=== PATIENT | male | born 1955 | race African-American/Black ===

== ENCOUNTER 2023-06-06 04:00 | Inpatient (IN) | payer MEDICARE ==
[~2023-06-06] VITALS: Ht 193 cm; Wt 99.8 kg
[2023-06-06 05:01] LABS: BASOPHILS % 0.7 % (0.0-2.0); EOSINOPHILS % 0.4 % (0.0-5.0); HEMATOCRIT. 38.6 % (42.0-52.0); HEMOGLOBIN. 13.2 g/dL (14.0-18.0); LYMPHOCYTES % 23.6 % (20.0-50.0); MEAN CORPUSCULAR HEMOGLOBIN 30.2 pg (28.0-32.0); MEAN CORPUSCULAR HGB CONC 34.1 g/dL (31.0-37.0); MEAN CORPUSCULAR VOLUME 88.6 fL (80.0-94.0); MEAN PLATELET VOLUME 7.8 fl (7.4-10.4); MONOCYTES % 8.6 % (2.0-8.0); NEUTROPHILS % 66.7 % (40.0-76.0); PLATELET 125 x1000/uL (130-400); RED BLOOD CELL COUNT 4.36 mill/uL (4.7-6.1); RED CELL DISTRIBUTION WIDTH 16.7 % (11.6-14.6); WHITE BLOOD COUNT 3.5 x1000/uL (4.5-11.0)
[2023-06-06 05:21] LABS: AMMONIA < 17 uMol/L (<32)
[2023-06-06 05:24] LABS: ACETAMINOPHEN < 2 ug/mL (10-30); ALANINE AMINOTRANSFERASE 14 IU/L (10-49); ALBUMIN 4.5 g/dL (3.2-4.8); ASPARTATE AMINOTRANSFERASE 16 IU/L (<34); BILIRUBIN TOTAL 0.5 mg/dL (0.1-1.0); CALCIUM 9.2 mg/dL (8.7-10.4); CARBON DIOXIDE 27 mEq/L (21-32); CHLORIDE 106 mEq/L (98-107); CREATINE KINASE 119 IU/L (46-171); CREATININE 1.1 mg/dL (0.6-1.3); GLUCOSE 104 mg/dL (70-105); POTASSIUM 3.5 mEq/L (3.5-5.1); PROTEIN TOTAL 8.1 g/dL (6.0-8.3); SODIUM 140 mEq/L (136-145); THYROID STIMULATING HORMONE 1.41 uIU/mL (0.55-4.78); TROPONIN I HIGH SENSITIVITY 32 ng/L (3.0-53); UREA NITROGEN BLOOD 12 mg/dL (9-23)
[2023-06-06 05:25] LABS: ETHANOL BLOOD < 10 mg/dL (<10)
[2023-06-06] MEDS: SODIUM CHLORIDE 0.9% 1,000 ML IV ONE (05:30)
[2023-06-06 05:49] LABS: PROTHROMBIN TIME 11.3 sec (9.6-11.0)
[2023-06-06 06:52] LABS: BG BASE EXCESS 1.5 mmol/L (-2.0-2.0); BG CARBOXYHEMOGLOBIN 0.6 % (0.5-1.5); BG DEOXYHEMOGLOBIN 4.8 % (0.0-5.0); BG FRACTION INSPIRED OXYGEN 21; BG HCO3 ACT 25.9 mmol/L (22.0-26.0); BG METHEMOGLOBIN 0.1 % (0.0-1.5); BG OXYGEN SATURATION 95.2 % (92.0-98.5); BG OXYHEMOGLOBIN 94.5 % (94.0-97.0); BG PCO2 39.9 mmHg (35.0-45.0); BG PO2 78.5 mmHg (75.0-100.0); BG SAMPLE SITE LEFT RADIAL; BG TOTAL HEMOGLOBIN 13.5 g/dL (12.0-18.0); BG VENT MODE ROOM AIR
[2023-06-06 07:00] LABS: CLARITY URINE CLEAR (CLEAR); COLOR URINE YELLOW (YELLOW); GLUCOSE URINE NEGATIVE (NEGATIVE); KETONES URINE NEGATIVE (NEGATIVE); LEUKOCYTE ESTERASE URINE NEGATIVE (NEGATIVE); NITRITE URINE NEGATIVE (NEGATIVE); OCCULT BLOOD URINE NEGATIVE (NEGATIVE); PROTEIN URINE TRACE (NEGATIVE); SPECIFIC GRAVITY URINE 1.011 (1.005-1.030); UROBILINOGEN URINE 0.2 E.U./dL (0.2-1.0)
[2023-06-06 07:09] LABS: *AMPHETAMINES SCREEN URINE NEGATIVE (NEGATIVE); *BARBITURATES SCREEN URINE NEGATIVE (NEGATIVE); *BENZODIAZEPINES SCREEN URINE NEGATIVE (NEGATIVE); *COCAINE SCREEN URINE NEGATIVE (NEGATIVE); CANNABINOID URINE SCREEN NEGATIVE (NEGATIVE); ECSTASY MDMA SCREEN URINE NEGATIVE (NEGATIVE); METHADONE URINE SCREEN Neg (NEGATIVE); OPIATES URINE SCREEN NEGATIVE (NEGATIVE); PHENCYCLIDINE URINE SCREEN NEGATIVE (NEGATIVE)
[2023-06-06 07:23] LABS: BACTERIA URINE NONE SEEN; RBC URINE 0-2 /hpf (0-2); SQUAMOUS EPITHELIAL CELL URINE NONE SEEN /lpf (RARE/1+); WBC URINE 0-2 /hpf (0-2)
[2023-06-06] MEDS: CLONIDINE 0.2MG TABLET PO NR (10:52)
[2023-06-06 11:07] VITALS: BP 171/110; PULSE 90; RESP 18; TEMP 98.8
[2023-06-06 11:51] VITALS: BP 143/103; PULSE 80; RESP 18; TEMP 97
[2023-06-06 13:23] VITALS: BP 143/103; PULSE 90; TEMP 98.5; O2SAT 98
== END 2023-06-06 13:48 | DRG 72 ==
LOC: ER 04:00 → 8WST 06:42 → EDBEDREQ 06:43 → EDBEDREQTM 06:43
PROVIDERS: ADMIT Internal Medicine; ATTEND Internal Medicine
DX: G93.40 Encephalopathy, unspecified (principal); F03.90 Unspecified dementia, unspecified severity, without behavioral disturbance, psychotic disturbance, mood disturbance, and anxiety; I10 Essential (primary) hypertension; J44.9 Chronic obstructive pulmonary disease, unspecified
CPT/HCPCS: 36415; 36600; 80053; 80305; 80307; 80320; 80329; 81003; 82140; 82375; 82550; 82805; 82962; 83605; 83880; 84443; 84484; 85025; 99285; J7030; G0480

== ENCOUNTER 2024-01-13 22:04 | Inpatient (IN) | payer MEDICARE, MEDICAID ==
[2024-01-12] MEDS: LORAZEPAM 2MG/ML INJ IV ONE (23:45)
[~2024-01-13] VITALS: Ht 195.6 cm; Wt 101.3 kg
[2024-01-13 23:22] LABS: CHLORIDE 106 mEq/L (98-107); POTASSIUM 3.3 mEq/L (3.5-5.1); SODIUM 141 mEq/L (136-145)
[2024-01-13 23:23] LABS: CALCIUM 9.3 mg/dL (8.7-10.4); CARBON DIOXIDE 28 mEq/L (21-32)
[2024-01-13 23:28] LABS: CREATININE 1.1 mg/dL (0.6-1.3); GLUCOSE 125 mg/dL (70-105); UREA NITROGEN BLOOD 14 mg/dL (9-23)
[2024-01-13 23:29] LABS: TROPONIN I HIGH SENSITIVITY 43 ng/L (3.0-53)
[2024-01-13 23:39] LABS: ETHANOL BLOOD < 10 mg/dL (<10)
[2024-01-13 23:42] LABS: BASOPHILS % 1.5 % (0.0-2.0); EOSINOPHILS % 1.9 % (0.0-5.0); HEMATOCRIT. 40.4 % (42.0-52.0); HEMOGLOBIN. 13.4 g/dL (14.0-18.0); LYMPHOCYTES % 41.2 % (20.0-50.0); MEAN CORPUSCULAR HGB CONC 33.1 g/dL (31.0-37.0); MEAN CORPUSCULAR VOLUME 90.7 fL (80.0-94.0); MEAN PLATELET VOLUME 7.9 fl (7.4-10.4); MONOCYTES % 8.9 % (2.0-8.0); NEUTROPHILS % 46.5 % (40.0-76.0); PLATELET 140 x1000/uL (130-400); RED BLOOD CELL COUNT 4.45 mill/uL (4.7-6.1); RED CELL DISTRIBUTION WIDTH 16.3 % (11.6-14.6)
[2024-01-14] MEDS: HYDRALAZINE 20MG/ML VIAL IV ONE (00:02)
[2024-01-14] MEDS: LEVETIRACETAM 500MG PREMIX 100 ML IV ONE ×2 (04:21→04:49)
[2024-01-14] MEDS ORDERED: ONDANSETRON HCL 4MG/2ML INJ IV PRN (11:45)
[2024-01-14] MEDS ORDERED: ACETAMINOPHEN 325MG TABLET PO PRN (11:45)
[2024-01-14] MEDS: ENOXAPARIN 40MG/0.4ML SYR SUBCUT SCH (12:26)
[2024-01-14] MEDS: PANTOPRAZOLE SODIUM 40 MG/VIAL IV SCH (12:26)
[2024-01-14 12:51] VITALS: BP 137/89; PULSE 95; RESP 20; TEMP 36.4736
[2024-01-14 13:57] LABS: *AMPHETAMINES SCREEN URINE NEGATIVE (NEGATIVE); *BARBITURATES SCREEN URINE NEGATIVE (NEGATIVE); *BENZODIAZEPINES SCREEN URINE NEGATIVE (NEGATIVE); *COCAINE SCREEN URINE NEGATIVE (NEGATIVE); METHADONE URINE SCREEN NEGATIVE (NEGATIVE)
[2024-01-14 13:58] LABS: CANNABINOID URINE SCREEN NEGATIVE (NEGATIVE); ECSTASY MDMA SCREEN URINE NEGATIVE (NEGATIVE); OPIATES URINE SCREEN NEGATIVE (NEGATIVE); PHENCYCLIDINE URINE SCREEN NEGATIVE (NEGATIVE)
[2024-01-14 15:17] LABS: CLARITY URINE CLEAR (CLEAR); COLOR URINE YELLOW (YELLOW); GLUCOSE URINE NEGATIVE (NEGATIVE); KETONES URINE NEGATIVE (NEGATIVE); LEUKOCYTE ESTERASE URINE NEGATIVE (NEGATIVE); NITRITE URINE NEGATIVE (NEGATIVE); OCCULT BLOOD URINE NEGATIVE (NEGATIVE); PH URINE 7.5 (4.5-8.0); PROTEIN URINE TRACE (NEGATIVE); SPECIFIC GRAVITY URINE 1.013 (1.005-1.030); UROBILINOGEN URINE 0.2 E.U./dL (0.2-1.0)
[2024-01-14 15:59] LABS: BACTERIA URINE NONE SEEN; RBC URINE NONE SEEN /hpf (0-2); SQUAMOUS EPITHELIAL CELL URINE RARE /lpf (RARE/1+); WBC URINE 0-2 /hpf (0-2)
[2024-01-14 16:00] VITALS: BP 123/84; PULSE 66; RESP 20; TEMP 36.50292; O2SAT 98
[2024-01-14] MEDS ORDERED: ASPI-1160 PO (16:35)
[2024-01-14] MEDS ORDERED: PANT40TA51 PO (16:35)
[2024-01-14] MEDS ORDERED: CYCL5TAB3 PO (16:35)
[2024-01-14] MEDS ORDERED: KEPP500 PO (16:35)
[2024-01-14] MEDS ORDERED: TIMO5DRO40 EACHEYE (16:35)
[2024-01-14] MEDS ORDERED: AMLO5TAB88 PO (16:35)
[2024-01-14] MEDS ORDERED: LORAZEPAM 2MG/ML INJ IV PRN (16:45)
[2024-01-14 18:50] LABS: CREATINE KINASE 233 IU/L (46-171)
[2024-01-14 19:03] LABS: TROPONIN I HIGH SENSITIVITY 207 ng/L (3.0-53)
[2024-01-14 20:00] VITALS: BP 120/79; PULSE 70; RESP 18; TEMP 37.89192; O2SAT 97
[2024-01-14] MEDS ORDERED: ZOLPIDEM TARTRATE 5MG TABLET PO PRN (21:00)
[2024-01-14] MEDS: LEVETIRACETAM 500MG PREMIX 100 ML IV SCH (21:13)
[2024-01-15] VITALS: BP 126/87; PULSE 88; RESP 18; TEMP 37.503; O2SAT 96
[2024-01-15 00:13] LABS: CREATINE KINASE 272 IU/L (46-171)
[2024-01-15 00:16] LABS: TROPONIN I HIGH SENSITIVITY 194 ng/L (3.0-53)
[2024-01-15 04:00] VITALS: BP 141/84; PULSE 89; RESP 20; TEMP 36.50292; O2SAT 96
[2024-01-15 07:54] LABS: BASOPHILS % 0.9 % (0.0-2.0); EOSINOPHILS % 2.2 % (0.0-5.0); HEMATOCRIT. 39.5 % (42.0-52.0); LYMPHOCYTES % 38.2 % (20.0-50.0); MEAN CORPUSCULAR HEMOGLOBIN 30.1 pg (28.0-32.0); MEAN CORPUSCULAR HGB CONC 32.9 g/dL (31.0-37.0); MEAN CORPUSCULAR VOLUME 91.5 fL (80.0-94.0); MEAN PLATELET VOLUME 8.3 fl (7.4-10.4); MONOCYTES % 11.2 % (2.0-8.0); NEUTROPHILS % 47.5 % (40.0-76.0); PLATELET 152 x1000/uL (130-400); RED BLOOD CELL COUNT 4.32 mill/uL (4.7-6.1); RED CELL DISTRIBUTION WIDTH 16.5 % (11.6-14.6); WHITE BLOOD COUNT 5.1 x1000/uL (4.5-11.0)
[2024-01-15 07:57] VITALS: BP 147/86; PULSE 87; RESP 18; TEMP 37.00296; O2SAT 98
[2024-01-15] MEDS: AMLODIPINE 5MG TABLET PO SCH (08:04)
[2024-01-15] MEDS: ASPIRIN 81MG TABLET PO SCH (08:04)
[2024-01-15 08:07] LABS: CHLORIDE 107 mEq/L (98-107); POTASSIUM 3.7 mEq/L (3.5-5.1); SODIUM 141 mEq/L (136-145)
[2024-01-15 08:08] LABS: CALCIUM 9.7 mg/dL (8.7-10.4); CARBON DIOXIDE 29 mEq/L (21-32)
[2024-01-15 08:13] LABS: GLUCOSE 87 mg/dL (70-105); UREA NITROGEN BLOOD 18 mg/dL (9-23)
[2024-01-15 08:37] LABS: CREATININE 1.2 mg/dL (0.6-1.3)
[2024-01-15 12:00] VITALS: BP 140/85; PULSE 85; RESP 18; TEMP 36.3918; O2SAT 98
[2024-01-15 16:00] VITALS: BP 134/82; PULSE 75; RESP 18; TEMP 36.72516; O2SAT 97
[2024-01-15 20:00] VITALS: BP 128/82; PULSE 85; RESP 20; TEMP 35.66952; O2SAT 96
[2024-01-15] MEDS: LEVETIRACETAM 500MG TABLET PO SCH (21:51)
[2024-01-16] VITALS: BP 117/75; PULSE 81; RESP 20; TEMP 36.50292; O2SAT 97
[2024-01-16 04:00] VITALS: BP 132/82; PULSE 86; RESP 20; TEMP 36.50292; O2SAT 97
[2024-01-16 08:00] VITALS: BP 147/73; PULSE 88; RESP 18; TEMP 37.16964; O2SAT 96
[2024-01-16 12:00] VITALS: BP 133/81; PULSE 82; RESP 18; TEMP 37.11408; O2SAT 95
[2024-01-16 16:00] VITALS: BP 140/94; PULSE 85; RESP 18; TEMP 37.05852; O2SAT 99
[2024-01-16 20:00] VITALS: BP 166/102; PULSE 82; RESP 18; TEMP 36.72516; O2SAT 99
[2024-01-16] MEDS: CLONIDINE 0.1MG TABLET PO PRN (21:19)
[2024-01-17] VITALS: BP 126/75; PULSE 76; RESP 18; TEMP 36.55848; O2SAT 99
[2024-01-17 04:00] VITALS: BP 152/91; PULSE 82; RESP 18; TEMP 36.44736; O2SAT 99
[2024-01-17 08:00] VITALS: BP 130/69; PULSE 61; RESP 18; TEMP 36.61404; O2SAT 99
[2024-01-17] MEDS: FAMOTIDINE 20MG/2ML VIAL IV SCH (08:05)
[2024-01-17 12:00] VITALS: BP 144/83; PULSE 78; RESP 18; TEMP 36.6696; O2SAT 98
[2024-01-17] MEDS ORDERED: ATOR20TA MT (15:57)
[2024-01-17 16:00] VITALS: BP 154/85; PULSE 72; RESP 18; TEMP 36.61404; O2SAT 99
[2024-01-17 16:42] VITALS: BP 134/79; PULSE 88; TEMP 98; O2SAT 95
[2024-01-17] MEDS ORDERED: ATORVASTATIN CALCIUM 20MG TABLET PO SCH (21:00)
== END 2024-01-17 18:30 | DRG 100 ==
LOC: ER 22:04 → 8WST 01-14 03:39 → EDBEDREQ 01-14 03:47
PROVIDERS: ADMIT Internal Medicine; ATTEND Internal Medicine
DX: G40.409 Other generalized epilepsy and epileptic syndromes, not intractable, without status epilepticus (principal); G93.41 Metabolic encephalopathy; M62.82 Rhabdomyolysis; I11.0 Hypertensive heart disease with heart failure; I25.10 Atherosclerotic heart disease of native coronary artery without angina pectoris; I50.9 Heart failure, unspecified; J44.9 Chronic obstructive pulmonary disease, unspecified; G30.9 Alzheimer's disease, unspecified; F02.80 Dementia in other diseases classified elsewhere, unspecified severity, without behavioral disturbance, psychotic disturbance, mood disturbance, and anxiety
CPT/HCPCS: 36415; 80048; 80305; 80320; 81003; 82550; 82553; 84484; 85025; 97161; 97165; 99285; C1893; J0360; J1650; J1953; J2060; J2470; J3490; G0480